=== PATIENT | female | born 1990 | race Two or more races ===

== ENCOUNTER 2022-11-04 01:30 | Emergency (ER) | payer MEDICAID ==
[~2022-11-04] VITALS: Ht 167.6 cm; Wt 72.0 kg
[2022-11-04 01:30] VITALS: BP 123/94
[2022-11-04] MEDS ORDERED: CYCL-837 PO (19:35)
[2022-11-04] MEDS ORDERED: IBUP600T27 PO (19:35)
== END 2022-11-04 03:01 | disposition left against medical advice (07) ==
LOC: ER 01:30
DX: R07.89 Other chest pain (principal); Z53.21 Procedure and treatment not carried out due to patient leaving prior to being seen by health care provider
CPT/HCPCS: 71046

== ENCOUNTER 2022-11-04 17:45 | Emergency (ER) | payer MEDICAID ==
[~2022-11-04] VITALS: Ht 167.6 cm; Wt 72.7 kg
[2022-11-04 18:00] VITALS: BP 122/84
[2022-11-04] MEDS ORDERED: IBUP600T27 PO (19:35)
[2022-11-04] MEDS ORDERED: CYCL-837 PO (19:35)
== END 2022-11-04 23:01 | disposition home or self-care (01) ==
LOC: ER 17:45
DX: S20.219A Contusion of unspecified front wall of thorax, initial encounter (principal); S40.012A Contusion of left shoulder, initial encounter; W18.39XA Other fall on same level, initial encounter; Y93.89 Activity, other specified; Y92.89 Other specified places as the place of occurrence of the external cause; Y99.8 Other external cause status
CPT/HCPCS: 73000; 73030

== ENCOUNTER 2023-03-08 00:32 | Emergency (ER) | payer MEDICAID ==
[~2023-03-08] VITALS: Ht 170.2 cm; Wt 68.1 kg
[~2023-03-08 00:32] MED LIST: CYCL-837 PO; IBUP-1454 PO
[2023-03-08] MEDS ORDERED: MORPHINE SULFATE 4 MG/ML SYR/VIAL IV ONE (03:45)
[2023-03-08] MEDS ORDERED: ONDANSETRON HCL 4 MG/2 ML VIAL IV ONE (03:45)
[2023-03-08] MEDS ORDERED: CLINDAMYCIN 600MG IV 50 ML IV ONE (04:00)
[2023-03-08] MEDS ORDERED: KETOROLAC TROMETH 30 MG/ML 1ML VIAL IV ONE (04:00)
[2023-03-08] MEDS ORDERED: CLINDAMYCIN 300MG IV 50 ML IV ONE ×2 (04:15→05:15)
[2023-03-08] MEDS ORDERED: IBUP100S11 PO (05:24)
[2023-03-08] MEDS ORDERED: ZOFR4T PO (05:24)
[2023-03-08] MEDS ORDERED: ACET5SOL5 PO (05:24)
[2023-03-08] MEDS ORDERED: CLIN300C70 PO (05:24)
[2023-03-08 07:12] LABS: Basophils # (auto) 0.1 10 ^3/uL (0-0.2); Eosinophils # (auto) 0.1 10 ^3/uL (0-0.8); Eosinophils % (auto) 0.4 % (0.0-7.0); Hematocrit 39.4 % (36.0-46.0); Hemoglobin 12.9 g/dL (12.2-16.2); Lymphocytes # (auto) 3.3 10 ^3/uL (0.4-5.4); Mean Corpuscular Hemoglobin 29.5 pg (28.0-32.0); Mean Corpuscular Hgb Conc. 32.8 g/dL (32.0-36.0); Monocytes # (auto) 0.9 10 ^3/uL (0-1.3); Monocytes % (auto) 7.7 % (0.0-12.0); Neutrophils # (auto) 7.9 10 ^3/uL (1.6-8.6); Neutrophils % (auto) 63.9 % (37.0-80.0); Nucleated Red Blood Cells % 0.1 %; Red Blood Cells 4.38 10^6/uL (4.0-5.20); Red Cell Distribution Width 13.6 % (11.8-14.3); White Blood Cell 12.4 10^3/uL (4.4-10.8)
[2023-03-08 07:14] LABS: INR 1.06 (0.9-1.15); Partial Thromboplastin Time 26.6 SEC (24.5-34.5); Prothrombin Time 11.1 sec (9.3-11.8)
[2023-03-08 07:29] VITALS: BP 112/77; TEMP 98
[2023-03-08 07:30] VITALS: PULSE 79; RESP 18; O2SAT 100
[2023-03-08 07:38] LABS: Chloride 105 mmol/L (98-107); Potassium 4.1 mmol/L (3.5-5.1); Sodium 137 mmol/L (136-145)
[2023-03-08 07:47] LABS: Alanine Aminotransferase 20 U/L (13-56); Albumin 3.9 g/dL (3.4-5.0); Alkaline Phosphatase 83 U/L (45-117); Anion Gap 7 (5-15); Aspartate Aminotransferase 12 U/L (15-37); BUN/Creatinine Ratio 9.2 (10.0-20.0); Bilirubin, Total 0.8 mg/dL (0.2-1.0); Blood Alcohol < 3.0 mg/dL (<10); Blood Urea Nitrogen 6 mg/dL (7-18); Calcium 8.9 mg/dL (8.5-10.1); Carbon Dioxide 25 mmol/L (21-32); GFR African American 137 mL/min; GFR Non-African American 113 mL/min; Glucose 107 mg/dL (74-106); Total Protein 7.6 g/dL (6.4-8.2)
[2023-03-08 08:35] VITALS: PULSE 63; RESP 19; O2SAT 96
== END 2023-03-08 10:05 | disposition home or self-care (01) ==
LOC: ER 00:32
DX: T14.8XXA Other injury of unspecified body region, initial encounter (principal); Z79.899 Other long term (current) drug therapy; X58.XXXA Exposure to other specified factors, initial encounter; Y93.89 Activity, other specified; Y92.89 Other specified places as the place of occurrence of the external cause; Y99.8 Other external cause status
CPT/HCPCS: 36415; 70450; 70486; 80053; 80320; 85025; 85610; 85730; 96365; 96366; 96368; 96375; 99285; J1885; J2270; J2405; J3490

== ENCOUNTER 2023-03-30 20:54 | Emergency (ER) | payer MEDICAID ==
[~2023-03-30] VITALS: Ht 170.2 cm; Wt 72.7 kg
[~2023-03-30 20:54] MED LIST changes: +ACET5SOL5 PO; +CLIN300C70 PO; +IBUP100S11 PO; +ZOFR4T PO
[2023-03-31 03:36] VITALS: BP 106/82
[2023-03-31] MEDS ORDERED: AMOX875T4 PO (03:41)
[2023-03-31] MEDS ORDERED: BENZOCAINE (DENTAL) 20 % SPRAY 60ML MT ONE ×2 (03:45)
[2023-03-31 03:46] VITALS: PULSE 115; RESP 16; O2SAT 97
[2023-03-31] MEDS ORDERED: LIDOCAINE 1% HCL (LOCAL ANESTH.) INJ 20ML MDV ONE (03:56)
[2023-03-31] MEDS ORDERED: cefTRIAXone SOD 1,000 MG VL IM ONE (04:00)
[2023-03-31] MEDS ORDERED: KETOROLAC TROMETH 60MG/2ML VIAL IM ONE (04:00)
[2023-03-31] MEDS ORDERED: LIDOCAINE 1% HCL (LOCAL ANESTH.) INJ 20ML MDV IJ ONE (04:00)
[2023-03-31] MEDS ORDERED: KETOROLAC TROMETH 60MG/2ML VIAL ONE (04:03)
== END 2023-03-31 04:58 | disposition home or self-care (01) ==
LOC: ER 20:54
DX: R68.84 Jaw pain (principal); Z98.818 Other dental procedure status
CPT/HCPCS: 96372; 99284; J0696; J1885; J2001

== ENCOUNTER 2025-03-15 17:54 | Emergency (ER) | payer MEDICAID ==
[~2025-03-15] VITALS: Ht 165.1 cm; Wt 77.0 kg
[~2025-03-15 17:54] MED LIST changes: +ACET-2058 PO; -ACET5SOL5 PO; +AMOX875T4 PO; +CLIN1CAP70 PO; -CLIN300C70 PO
--- NOTE | 2025-03-15 19:28 | ED.PDOC ---
Musculoskeletal HPI Comments 34-year-old female presents to ER with complaints of right leg pain x1 day. Patient reports that she started experiencing unprovoked 8/10 right thigh pain with radiation towards right calf yesterday evening that started while she was drinking alcohol. Denies any trauma/falls or known injury and denies use of medications for current symptoms. Patient presents to ER ambulatory on arrival, favoring left leg on ambulation and does reports numbness/tingling to right leg. Denies skin changes, shortness of breath, chest pain or any further symptoms/complaints Chief Complaint: Lower Extremity Time Seen by MD: 18:19 Primary Care Provider: UNKNOWN Reviewed Notes: Nurses Notes, Medications, Allergies Allergies: Coded Allergies: NO KNOWN ALLERGIES (Unverified , 01/18/13) Home Meds Active Scripts Amoxicillin & Pot Clavulanate (Amoxicillin/Potassium Cla) 875 Mg Tab, 1 TAB PO BID for 7 Days, #14 TAB 0 Refills Prov:EDOUARD CUETO 03/31/23 Ondansetron Odt 4MG Tab (ZOFRAN PO) 4 Mg Tb, 4 MG PO TID, #14 TAB ODT TAB-DISSOLVE IN MOUTH, THEN SWALLOW Prov:BRITNI MACIAS MD 03/08/23 Ibuprofen (Motrin) 100 Mg/5 Ml Ud, 20 ML PO Q6HPRN, #240 ML Prov:BRITNI MACIAS MD 03/08/23 Acetaminophen (Acetaminophen) 160 Mg/5 Ml Sandra, 20 ML PO Q4HR, #240 ML Prov:BRITNI MACIAS MD 03/08/23 Clindamycin Hcl (Clindamycin Hcl) 300 Mg Cap, 1 CAP PO TID, #30 CAP Prov:BRITNI MACIAS MD 03/08/23 Cyclobenzaprine Hcl (Cyclobenzaprine Hcl) 5 Mg Tab, 1 TAB PO QPM PRN, #30 TAB Prov:GRAZYNA WYLIEP 11/04/22 Ibuprofen (Ibuprofen) 600 Mg Tab, 1 TAB PO TID PRN, #90 TAB Prov:GRAZYNA WYLIE 11/04/22 Information Source: Patient Mode of Arrival: Ambulatory Past Medical History PAST MEDICAL HISTORY: Denies Surgical History: Denies all surgeries IRONER OR PRESSER History: No Pertinent IRONER OR PRESSER History Family History Family History: Unknown Social History Smoker: Non-Smoker Alcohol: Denies ETOH Use Drugs: Denies Drug Use Lives In: Home Constitutional: denies: chills, diaphoresis, fatigue, fever, malaise, sweats, weakness, others EENTM: denies: blurred vision, double vision, ear bleeding, ear discharge, ear drainage, ear pain, ear ringing, eye pain, eye redness, hearing loss, mouth pain, mouth swelling, nasal discharge, nose bleeding, nose congestion, nose pain, photophobia, tearing, throat pain, throat swelling, voice changes, others Respiratory: denies: cough, hemoptysis, orthopnea, SOB at rest, shortness of breath, SOB with excertion, stridor, wheezing, others Cardiovascular: denies: chest pain, dizzy spells, diaphoresis, Dyspnea on exertion, edema, irregular heart beat, left arm pain, lightheadedness, palpitations, PND, syncope, others Gastrointestinal: denies: abdomen distended, abdominal pain, blood streaked bowels, constipated, diarrhea, dysphagia, difficulty swallowing, hematemesis, melena, nausea, poor appetite, poor fluid intake, rectal bleeding, rectal pain, vomiting, others Genitourinary: denies: abnormal vagina bleeding, burning, dyspareunia, dysuria, flank pain, frequency, hematuria, incontinence, pain, , vagina discharge, urgency, others Neurological: reports: others (As stated in HPI) Musculoskeletal: reports: others (As stated in HPI) Integumetry: denies: bruises, change in color, change in hair/nails, dryness, laceration, lesions, lumps, rash, wounds, others Allergic/Immunocompromised: denies: Difficulty Healing, Frequent Infections, Hives, Itching, others Hematologic/Lymphatic: denies: anemia, blood clots, easy bleeding, easy bruising, swollen glands, others Endocrine: denies: excessive hunger, excessive sweating, excessive thirst, excessive urination, flushing, intolerance to cold, intolerance to heat, unexplained weight gain, unexplained weight loss, others Psychiatric: denies: anxiety, bipolar disorder, depression, hopeless, panic disorder, schizophrenia, sleepless, suicidal, others Physical Exam General Appearance: Mild Distress HEENT: PERRL/EOMI Neck: Full Range of Motion, Non-Tender, Normal Respiratory: Chest Non-Tender, Lungs Clear, No Accessory Muscle Use, No Respiratory Distress, Normal Breath Sounds Cardiovascular: No Murmur, No Gallop, Regular Rate/Rhythm Breast Exam: Deferred Gastrointestinal: NOT DONE Genitalia: Deferred Pelvic: Deferred Rectal: Deferred Extremities: Calf tenderness (TTP to right lower thigh/right upper calf noted without any skin changes appreciated. Patient favors left leg on ambulation due to pain localized to right lower thigh/right upper calf. ), Normal capillary refill, Normal range of motion Neurologic: Alert, No Motor Deficits, Normal Affect, Normal Mood, No Sensory Deficits Cerebellar Function: Normal Reflexes: Normal Skin: Dry, Normal Color, Warm Peripheral Pulses: 2+ Radial (R), 2+ Radial (L), 2+ Brachial (R), 2+ Brachial (L) Lymphatic: No Adenopathy Was a procedure done? Was a procedure done?: No Sedation Sedation?: No Differential Diagnosis EXT Differential Diagnosis: Cellulitis, Deep Vein Thrombosis, Neurovascular injury X-Ray, Labs, Meds, VS Vital Signs Date Time Temp Pulse Resp B/P (MAP) Pulse Ox O2 Delivery O2 Flow Rate FiO2 03/15/25 20:26 97.5 98 20 146/84 (104) 97 97.5 03/15/25 17:56 97.7 95 18 141/80 98 97.7 Lab Test 03/15/25 19:42 Range/Units White Blood Count 10.1 4.4-10.8 10^3/uL Red Blood Count 4.44 4.0-5.20 10^6/uL Hemoglobin 12.9 12.2-16.2 g/dL Hematocrit 38.3 36.0-46.0 % Mean Corpuscular Volume 86.3 80.0-100.0 fL Mean Corpuscular Hemoglobin 29.1 28.0-32.0 pg Mean Corpuscular Hemoglobin Concent 33.7 32.0-36.0 g/dL Red Cell Distribution Width 13.6 11.8-14.3 % Platelet Count 334 140-450 10^3/uL Mean Platelet Volume 8.8 6.9-10.8 fL Neutrophils (%) (Auto) 63.8 37.0-80.0 % Lymphocytes (%) (Auto) 25.7 10.0-50.0 % Monocytes (%) (Auto) 6.4 0.0-12.0 % Eosinophils (%) (Auto) 3.5 0.0-7.0 % Basophils (%) (Auto) 0.6 0.0-2.0 % Neutrophils # (Auto) 6.5 1.6-8.6 10 ^3/uL Lymphocytes # (Auto) 2.6 0.4-5.4 10 ^3/uL Monocytes # (Auto) 0.6 0-1.3 10 ^3/uL Eosinophils # (Auto) 0.4 0-0.8 10 ^3/uL Basophils # (Auto) 0.1 0-0.2 10 ^3/uL Nucleated Red Blood Cells 0.0 % Sodium Level 140 136-145 mmol/L Potassium Level 3.9 3.5-5.1 mmol/L Chloride Level 105 98-107 mmol/L Carbon Dioxide Level 26 20-31 mmol/L Anion Gap 9 5-15 Blood Urea Nitrogen 9 9-23 mg/dL Creatinine 0.87 0.550-1.02 mg/dL Glomerular Filtration Rate Calc 90 >90 mL/min BUN/Creatinine Ratio 10.3 10.0-20.0 Serum Glucose 97 74-106 mg/dL Calcium Level 9.2 8.7-10.4 mg/dL Current Medications Medications (Trade) Dose Ordered Sig/Lolis Route Start Time Stop Time Status Last Admin Acetaminophen (Tylenol Tablet) 650 mg ONCE ONCE PO 03/15/25 19:30 03/15/25 19:31 DC 03/15/25 20:14 PATIENT: KWASI DUENASACCT: [id number]: [id number] : 1990 LOC: ER ROOM / BED: / AGE / SEX: 34 / F ADM STATUS: REG ER SERVICE 17 ORDERING PHYSICIAN: EDOUARD CUETO PROCEDURE(s): RLDVT - RT Lower DVT REASON: right leg pain ORDER NUMBER(s): [id number], ACCESSION NUMBER(s): [id number] RIGHT LOWER EXTREMITY VENOUS DUPLEX REASON FOR EXAMINATION: right leg pain COMPARISON: None TECHNIQUE: Using real-time freeze-frame technique with a high-frequency transducer, multiple longitudinal and transverse sections were obtained. Simultaneous color flow and spectral Doppler imaging was performed. FINDINGS: There is good visualization of the deep venous system with no intraluminal filling defects identified. Normal venous compressibility is seen and there is flow augmentation. Color flow Doppler imaging is unremarkable. IMPRESSION: NO EVIDENCE OF DEEP VENOUS THROMBOSIS. ATED BY: ARTHUR CORNELIUS MD DICTATED DATE/TIME: 03/15/252001 SIGNED BY: ARTHUR CORNELIUS MD SIGNED DATE/TIME: 03/15/252001 CC: CBC reviewed - unremarkable BMP reviewed - unremarkable Right lower DVT ultrasound reviewed Tylenol 650 mg p.o. ordered Patient neurovascularly intact and reported improvement in symptoms prior to discharge Advised to follow up with PCP in 1-2 days Patient verbalized understanding and agreeable with current plan of care Advised to return to ER immediately if symptoms worsen Images Reviewed?: Images reviewed and evaluated by me Time of 1ST Reevaluation: 19:22 Reevaluation 1ST: N/A Patient Education/Counseling: Diagnosis, Treatment, Prognosis, Need For Follow Up Family Education/Counseling: No Family Present Departure 1 Departure Time of Disposition: 19:22 Impression: Primary Impression: Muscle strain of right lower extremity Qualified Codes: S86.911A - Strain of unspecified muscle(s) and tendon(s) at lower leg level, right leg, initial encounter Disposition: HOME / SELF CARE / HOMELESS Condition: Stable Discharged With: Friend Critical Care Note Critical Care Time?: No Stability Stability form required: No Heart Score Heart Score: Heart Score Response (Comments) Value History N/A 0 EKG N/A 0 Age N/A 0 Risk Factors N/A 0 Troponin N/A 0 Total 0 EDOUARD CUETO Mar 15, 2025 19:28
--- NOTE | 2025-03-15 20:04 | DVH ---
RIGHT LOWER EXTREMITY VENOUS DUPLEX REASON FOR EXAMINATION: right leg pain COMPARISON: None TECHNIQUE: Using real-time freeze-frame technique with a high-frequency transducer, multiple longitu dinal and transverse sections were obtained. Simultaneous color flow and spectral Doppler imaging wa s performed. FINDINGS: There is good visualization of the deep venous system with no intraluminal filling defects identified. Normal venous compressibility is seen and there is flow augmentation. Color flow Doppler imaging is unremarkable. IMPRESSION: NO EVIDENCE OF DEEP VENOUS THROMBOSIS.
[2025-03-15 20:11] LABS: Hematocrit 38.3 % (36.0-46.0); Hemoglobin 12.9 g/dL (12.2-16.2); Mean Corpuscular Hemoglobin 29.1 pg (28.0-32.0); Mean Corpuscular Volume 86.3 fL (80.0-100.0); Nucleated Red Blood Cells % 0.0 %
[2025-03-15] MEDS: ACETAMINOPHEN 325 MG TAB PO ONE (20:14)
[2025-03-15 20:23] LABS: Chloride 105 mmol/L (98-107); Potassium 3.9 mmol/L (3.5-5.1); Sodium 140 mmol/L (136-145)
[2025-03-15 20:24] LABS: Anion Gap 9 (5-15); Carbon Dioxide 26 mmol/L (20-31)
[2025-03-15 20:25] LABS: Calcium 9.2 mg/dL (8.7-10.4)
[2025-03-15 20:26] VITALS: BP 146/84; PULSE 98; RESP 20; TEMP 97.5; O2SAT 97
[2025-03-15 20:29] LABS: Glucose 97 mg/dL (74-106)
[2025-03-15 20:30] LABS: BUN/Creatinine Ratio 10.3 (10.0-20.0)
[2025-03-15 20:31] LABS: Blood Urea Nitrogen 9 mg/dL (9-23)
== END 2025-03-15 21:15 | disposition home or self-care (01) ==
LOC: ER 17:54
DX: S86.911A Strain of unspecified muscle(s) and tendon(s) at lower leg level, right leg, initial encounter (principal); Z79.899 Other long term (current) drug therapy; X58.XXXA Exposure to other specified factors, initial encounter; Y93.89 Activity, other specified; Y92.89 Other specified places as the place of occurrence of the external cause; Y99.8 Other external cause status
CPT/HCPCS: 36415; 80048; 85025; 93971